=== PATIENT | female | born 1950 | race African-American/Black ===

== ENCOUNTER → 2017-02-10 | Outpatient (CLI) | payer MEDICARE | END | disposition home or self-care (01) | LOC: SURG 14:47 | PROVIDERS: ATTEND Anesthesiology | DX: M47.817 Spondylosis without myelopathy or radiculopathy, lumbosacral region (principal); M19.90 Unspecified osteoarthritis, unspecified site; E11.8 Type 2 diabetes mellitus with unspecified complications; J45.909 Unspecified asthma, uncomplicated | CPT/HCPCS: 99214 ==

== ENCOUNTER → 2017-03-03 | Outpatient (CLI) | payer MEDICARE ==
[~2017-03-03] MED LIST: BUPIVACAINE MPF 0.25% 10 ML VIAL. ONE; DEXAMETHASONE SOD PHOS 4 MG/ML VIAL ONE; IV NORMAL SALINE 250ML 250 ML ONE; LIDOCAINE (700MG/PATCH) PATCH. ONE; LIDOCAINE 1% PF 30 ML VIAL. ONE; MIDAZOLAM HCL PF 2 MG/2 ML VIAL. ONE
== END | disposition home or self-care (01) ==
LOC: SURG 11:57
PROVIDERS: ATTEND Anesthesiology
DX: M47.816 Spondylosis without myelopathy or radiculopathy, lumbar region (principal); J45.909 Unspecified asthma, uncomplicated; M19.91 Primary osteoarthritis, unspecified site; E11.9 Type 2 diabetes mellitus without complications
CPT/HCPCS: 64635; 64636; J1100; J2001; J2250; J3010; J3490; J7050

== ENCOUNTER → 2017-03-05 | Outpatient (CLI) | payer MEDICARE ==
--- NOTE | 2017-03-05 09:27 | RAD ---
Abdominal ultrasound, 03/05/2017: History: Right upper quadrant pain The gallbladder is within normal limits in size. It contains mobile echogenic foci compatible with gallstones. The gallbladder wall is not thickened. No bile duct dilatation is seen. There is no evidence of a hepatic mass. The pancreatic body is unremarkable. Other portions of the pancreas were obscured by overlying bowel. The spleen is of normal size. No renal abnormality is detected. The visualized portions of the abdominal aorta and inferior vena cava show no abnormality. No free fluid is evident in the abdomen. IMPRESSION: Cholelithiasis
== END | disposition home or self-care (01) ==
LOC: US 07:41
PROVIDERS: ATTEND Family Medicine
DX: K80.00 Calculus of gallbladder with acute cholecystitis without obstruction (principal)
CPT/HCPCS: 76700

== ENCOUNTER → 2017-03-17 | Outpatient (CLI) | payer MEDICARE ==
[~2017-03-17] MED LIST changes: +ATROPINE 1 MG/10 ML DISP.SYRIN ONE; +BUPIVACAINE MPF 0.25% 30 ML VIAL. ONE; +EPINEPHrine SYRINGE 1 MG/10 ML SYRINGE ONE; +FLUMAZENIL 0.5 MG/5 ML VIAL. IV ONE; +GLUCAGON,HUMAN RECOMBINANT 1 MG KIT. ONE; -LIDOCAINE (700MG/PATCH) PATCH. ONE; +NALOXONE 0.4 MG/ML VIAL. ONE; +diphenhydrAMINE 50 MG/ML VIAL ONE
== END | disposition home or self-care (01) ==
LOC: SURG 11:17
PROVIDERS: ATTEND Anesthesiology
DX: M47.816 Spondylosis without myelopathy or radiculopathy, lumbar region (principal); Z88.6 Allergy status to analgesic agent; Z88.2 Allergy status to sulfonamides
CPT/HCPCS: 64635; 64636; J1100; J2001; J2250; J3010; J3490; J7050; J0171; J0461; J1200; J1610; J2310

== ENCOUNTER → 2017-03-27 | Outpatient (CLI) | payer MEDICARE ==
--- NOTE | 2017-03-27 16:32 | RAD ---
CT of the head and facial bones without contrast 03/27/2017 2:00 AM Indication: Patient fell 2 months ago. Persistent left-sided facial swelling. Occasional dizziness. Comparison: None Procedure: Multidetector CT imaging of the head and facial bones was performed without the administration of contrast. Findings: No evidence of acute intracranial hemorrhage is identified. No mass effect or midline shift is seen. The ventricles and basilar cisterns have an unremarkable configuration. Mild atrophic changes are noted. No abnormal extra-axial fluid collections are identified. No evidence of acute territorial infarct is identified. The bony calvarium remains intact. Postsurgical changes to the globes are noted likely reflecting prior cataract surgery. The globes and orbits are otherwise grossly unremarkable. Mild edema or possibly resolving hematoma can be seen in the subcutaneous tissues of the left cheek. Correlate with over lying bruising. The paranasal sinuses are clear. The pterygoid plates are intact. Zygomatic arches are intact. Mandible is incompletely visualized. Visualized portions of the mandible are intact. Nasal bones are intact. The bony orbits are intact. Impression: 1. No evidence of acute intracranial abnormality 2. No evidence of acute facial bone abnormality. Minimal subcutaneous density within left cheek possibly minimal residual edema resolving hematoma. PQRS Compliance Statement: One or more of the following individualized dose reduction techniques were utilized for this examination: 1. Automated exposure control 2. Adjustment of the mA and/or kV according to patient size 3. Use of iterative reconstruction technique
== END | disposition home or self-care (01) ==
LOC: RAD 16:00
PROVIDERS: ATTEND Family Medicine
DX: S02.32XA Fracture of orbital floor, left side, initial encounter for closed fracture (principal); R42 Dizziness and giddiness; X58.XXXA Exposure to other specified factors, initial encounter; Y93.89 Activity, other specified; Y92.89 Other specified places as the place of occurrence of the external cause; Y99.8 Other external cause status
CPT/HCPCS: 70450; 70486

== ENCOUNTER → 2017-04-14 | Outpatient (CLI) | payer MEDICARE ==
[~2017-04-14] MED LIST changes: -ATROPINE 1 MG/10 ML DISP.SYRIN ONE; -BUPIVACAINE MPF 0.25% 30 ML VIAL. ONE; -DEXAMETHASONE SOD PHOS 4 MG/ML VIAL ONE; -EPINEPHrine SYRINGE 1 MG/10 ML SYRINGE ONE; -FLUMAZENIL 0.5 MG/5 ML VIAL. IV ONE; -GLUCAGON,HUMAN RECOMBINANT 1 MG KIT. ONE; +IOHEXOL 300 MG/ML 50 ML VIAL. ONE; -IV NORMAL SALINE 250ML 250 ML ONE; -MIDAZOLAM HCL PF 2 MG/2 ML VIAL. ONE; -NALOXONE 0.4 MG/ML VIAL. ONE; -diphenhydrAMINE 50 MG/ML VIAL ONE; +methylPREDNISolone ACETATE 40 MG/ML VIAL. ONE
== END | disposition home or self-care (01) ==
LOC: SURG 13:05
PROVIDERS: ATTEND Anesthesiology
DX: M16.11 Unilateral primary osteoarthritis, right hip (principal); M47.816 Spondylosis without myelopathy or radiculopathy, lumbar region; E11.9 Type 2 diabetes mellitus without complications; J45.909 Unspecified asthma, uncomplicated; Z88.6 Allergy status to analgesic agent; Z88.2 Allergy status to sulfonamides; Z90.710 Acquired absence of both cervix and uterus; Z98.890 Other specified postprocedural states
CPT/HCPCS: 20610; 77002; J1030; J2001; J3490; Q9967

== ENCOUNTER → 2017-07-15 | Outpatient (CLI) | payer OTHER ==
[~2017-07-15] MED LIST changes: +ALBU8.5H8 INH; +AZIT250T PO; -BUPIVACAINE MPF 0.25% 10 ML VIAL. ONE; -IOHEXOL 300 MG/ML 50 ML VIAL. ONE; +IOHEXOL 300 MG/ML 75 ML VIAL. IV ONE; -LIDOCAINE 1% PF 30 ML VIAL. ONE; -methylPREDNISolone ACETATE 40 MG/ML VIAL. ONE
[2017-07-15 08:16] LABS: CREATININE 0.8 mg/dL (0.6-1.0); GFR 87.4
--- NOTE | 2017-07-15 10:55 | RAD ---
CT pulmonary angiogram with intravenous contrast History: Elevated d-dimer, chest pain, shortness air, cough Comparison: None. Technique: CT angiogram of the chest with attention to the pulmonary arteries was performed after the administration of intravenous contrast, 75 mL Omnipaque-300. Axial 2-D reconstructions were obtained. Coronal 3-D MIPS were obtained of the chest. Exposure: One or more of the following individualized dose reduction techniques were utilized for this examination: 1. Automated exposure control 2. Adjustment of the mA and/or kV according to patient size 3. Use of iterative reconstruction technique Findings: Pulmonary arteries are adequately opacified. There is no evidence of pulmonary embolism. Trachea and mainstem bronchi appear patent. Visualized thyroid this is without evidence of focal nodule. No acute airspace disease is identified. No pneumothorax or pleural effusion is seen. No mediastinal lymphadenopathy is seen. Thoracic aorta has normal caliber. Heart and pericardium are unremarkable. Small calcified left lower lobe granuloma is seen. Post surgical changes are seen involving the stomach, compatible with bariatric surgery. There is mild thickening of left adrenal gland. Mild degeneration is seen in the spine. Impression: 1. No evidence of pulmonary embolism. No acute abnormality identified in the chest. Electronically signed by: Anirudh Prescott MD (07/15/2017 10:52 AM) [place] [id number]
== END | disposition home or self-care (01) ==
LOC: CT 07:38
PROVIDERS: ATTEND Family Medicine
DX: R79.9 Abnormal finding of blood chemistry, unspecified (principal); R79.89 Other specified abnormal findings of blood chemistry; J84.10 Pulmonary fibrosis, unspecified; E11.9 Type 2 diabetes mellitus without complications
CPT/HCPCS: 36415; 71275; 82565; 84520

== ENCOUNTER 2017-07-16 06:19 | Emergency (ER) | payer OTHER ==
[~2017-07-16] VITALS: Ht 172.7 cm; Wt 136.1 kg
--- NOTE | 2017-07-16 06:56 | PHYS DOC ---
General Chief Complaint: swelling Stated Complaint: dyspnea Time Seen by MD: 06:21 Source: patient Exam Limitations: no limitations Problems: History of Present Illness Initial Comments 65-year-old female comes to the ED complaining of leg swelling and chest tightness with dyspnea. Patient states that she was seen for similar symptoms yesterday by her PCP Dr. Elizalde. He ordered a CTA of the chest to rule out PE given her hypercoagulable history, that study was negative I have attached result the chart below. Patient states that she continues to have worsening chest tightness and perceived shortness of breath and has noticed increasing lower extremity swelling bilaterally and she's having pain at the dorsal aspect of her right thigh and calf. She's had a nonproductive cough with chills and sweats no measured fevers but no actual body aches. ED vitals: 97.8, 78, 22, 136/71, 97% room air PCP Alexis PATIENT: JC GARDNER ACCOUNT: [id number] : 1950 LOCATION: CT AGE: 66 SEX: F EXAM STATUS: REG CLI ORD. PHYSICIAN: BHANU ELIZALDE MD REASON: ELEVATED D DIMER PROCEDURE: CT ANGIOGRAPHY CHEST CT pulmonary angiogram with intravenous contrast History: Elevated d-dimer, chest pain, shortness air, cough Comparison: None. Technique: CT angiogram of the chest with attention to the pulmonary arteries was performed after the administration of intravenous contrast, 75 mL Omnipaque-300. Axial 2-D reconstructions were obtained. Coronal 3-D MIPS were obtained of the chest. Exposure: One or more of the following individualized dose reduction techniques were utilized for this examination: 1. Automated exposure control 2. Adjustment of the mA and/or kV according to patient size 3. Use of iterative reconstruction technique Findings: Pulmonary arteries are adequately opacified. There is no evidence of pulmonary embolism. Trachea and mainstem bronchi appear patent. Visualized thyroid this is without evidence of focal nodule. No acute airspace disease is identified. No pneumothorax or pleural effusion is seen. No mediastinal lymphadenopathy is seen. Thoracic aorta has normal caliber. Heart and pericardium are unremarkable. Small calcified left lower lobe granuloma is seen. Post surgical changes are seen involving the stomach, compatible with bariatric surgery. There is mild thickening of left adrenal gland. Mild degeneration is seen in the spine. Impression: 1. No evidence of pulmonary embolism. No acute abnormality identified in the chest. Electronically signed by: Anirudh Sánchez MD (07/15/2017 10:52 AM) [place] [id number] DICTATED AND SIGNED BY: ANIRUDH SÁNCHEZ MD DATE: 07/15/17 1044 CC: BHANU ELIZALDE MD ~ Timing/Duration: other Severity: moderate Modifying Factors: worse with movement, improves with rest Associated Symptoms: chest pain, cough, diaphoresis, loss of appetite, malaise , shortness of breath, weakness Allergies: Coded Allergies: morphine (Verified Allergy, Mild, rash, 05/09/15) Sulfa (Sulfonamide Antibiotics) (Verified Allergy, Unknown, 07/15/17) Past Medical History Medical History: other (anxiety, depression, obstructive sleep apnea, diabetes , DVT) Surgical History: other (cholecystectomy, hysterectomy, tonsillectomy, tubal ligation, left knee, bilateral carpal tunnel, bilateral trigger finger) Social History Smoker: non-smoker Alcohol: none Drugs: none Review of Systems Constitutional: denies chills, denies fever Respiratory: see HPI Cardiovascular: see HPI Gastrointestinal: denies abdominal pain, denies nausea, denies vomiting Genitourinary: denies dysuria, denies frequency, denies hematuria Musculoskeletal: see HPI Hematologic/Lymphatic: see HPI Physical Exam General Appearance: WD/WN, no apparent distress Ear, Nose, Throat: hearing grossly normal, normal ENT inspection, normal pharynx Neck: non-tender, supple Respiratory: normal breath sounds, no respiratory distress Cardiovascular: normal peripheral pulses, regular rate, rhythm Gastrointestinal: non tender, soft Back: no CVA tenderness, no vertebral tenderness Extremities: normal range of motion, pelvis stable, calf tenderness Neurologic/Psychiatric: post commander II-XII nml as tested, no motor/sensory deficits, alert, normal mood/affect, oriented x 3 Skin: normal color, warm/dry Orders, Labs, Meds EKG: Normal sinus rhythm 62 bpm, normal axis no ST segment elevation interpreted by me. PATIENT: JC GARDNER ACCOUNT: [id number] : 1950 LOCATION: ER AGE: 66 SEX: F EXAM STATUS: REG ER ORD. PHYSICIAN: SANDRA LOWRY DO REASON: pain/swelling, h/o DVT PROCEDURE: VENOUS LOWER EXT BILATERAL Bilateral lower extremity venous ultrasound, 07/16/2017: History: Leg pain and swelling, more so on the right Duplex evaluation of the deep veins in the lower extremities was performed including grayscale, color-flow and spectral Doppler analysis. The femoral and popliteal veins demonstrate normal compressibility and normal responses to distal augmentation maneuvers. Color imaging of those vessels shows no evidence of intraluminal clot. The visualized deep veins in both calves are patent. IMPRESSION: There is no sonographic evidence of deep vein thrombosis in either lower extremity. DICTATED AND SIGNED BY: GEMMA STANTON MD DATE: 07/16/17826 CC: BHANU ELIZALDE MD; SANDRA LOWRY DO ~ 11:15: Patient rechecked she's feeling much better after nebulizer treatment and her lungs have cleared substantially. I discussed elevated CK and no discernible cause noted there are discussion. BUN/creatinine ratio is elevated at 25 will give 1 L normal saline IV bolus and discharge home to aggressively hydrate and use newly prescribed albuterol inhaler. She agrees to follow-up with Dr. Elizalde tomorrow to recheck her creatine kinase to make sure it is trending down. Departure Time of Disposition: 11:17 Disposition: 01 HOME, SELF-CARE Diagnosis: CK elevation, hypovolemia, Condition: GOOD Patient Instructions: Acute Bronchitis, [id number], Bronchospasm, Adult, Creatine Kinase (CK) Additional Instructions: Please review the patient education materials given by ED staff. Aggressive hydration with a sports drink and water. [id number] Tylenol and ibuprofen as needed. Prescription: Albuterol I, Z-Juve Follow-up tomorrow with Dr. Elizalde to recheck creatine kinase. Return to ED with new or changing symptoms. SANDRA LOWRY DO Jul 16, 2017 06:56
--- NOTE | 2017-07-16 07:06 | EKG ---
[address] [address] Test Date: 2017-07-16 Test Time: 06:46:54 Pat Name: JC GARDNER Department: Room: Gender: F Shoder Filler: KAROLINA : 1950 Requested By: SANDRA LOWRY Order Number: [id number] Reading MD: Measurements Intervals [place] Rate: 67 P: 31 [place]: 198 QRS: 5 QRSD: 78 T: 59 QT: 398 QTc: 423 Interpretive Statements SINUS RHYTHM NORMAL ECG RI6.01 No previous ECG available for comparison
[2017-07-16] MEDS ORDERED: NITROGLYCERIN SUBLINGUAL 0.4 MG BOTTLE OF 25. SL PRN (07:45)
[2017-07-16] MEDS ORDERED: IPRATRPIUM/ALBUTEROL 0.5/2.5MG 3 ML NEBU. NEB ONE (08:00)
[2017-07-16 08:09] LABS: INFLUENZA A PATIENT NEGATIVE (NEGATIVE); INFLUENZA B PATIENT NEGATIVE (NEGATIVE)
--- NOTE | 2017-07-16 08:30 | RAD ---
Bilateral lower extremity venous ultrasound, 07/16/2017: History: Leg pain and swelling, more so on the right Duplex evaluation of the deep veins in the lower extremities was performed including grayscale, color-flow and spectral Doppler analysis. The femoral and popliteal veins demonstrate normal compressibility and normal responses to distal augmentation maneuvers. Color imaging of those vessels shows no evidence of intraluminal clot. The visualized deep veins in both calves are patent. IMPRESSION: There is no sonographic evidence of deep vein thrombosis in either lower extremity.
[2017-07-16 08:50] LABS: BASO # 0.1 x10^3/uL (0.0-0.2); BASO % 1 % (0-3); EOS # 0.2 x10^3/uL (0.0-0.7); EOS % 4 % (0-3); HEMATOCRIT 36.9 % (36.0-47.0); HEMOGLOBIN 12.3 g/dL (12.0-15.5); LYMPH # 2.5 x10^3/uL (1.0-4.8); LYMPH % 46 % (24-48); MEAN CORPUSCULAR HEMOGLOBIN 29 pg (25-35); MEAN CORPUSCULAR HGB CONC 33 g/dL (31-37); MEAN CORPUSCULAR VOLUME 87 fL (79-100); MONO # 0.3 x10^3/uL (0.0-1.1); MONO % 6 % (0-9); NEUT # 2.3 x10^3uL (1.8-7.7); NEUT % 42 % (31-73); PLATELET COUNT 284 x10^3/uL (140-400); RED BLOOD COUNT 4.23 x10^6/uL (3.50-5.40); RED CELL DISTRIBUTION WIDTH 13.4 % (11.5-14.5); WHITE BLOOD COUNT 5.4 x10^3/uL (4.0-11.0)
[2017-07-16 09:18] LABS: BACTERIA,URINE 0 /HPF (0-FEW); BILIRUBIN,URINE NEG (NEG); CLARITY,URINE CLEAR; COLOR,URINE YELLOW; GLUCOSE,URINE NEG (NEG); NITRITE,URINE NEG (NEG); RBC,URINE 0 /HPF (0-2); SQUAMOUS EPITHELIAL CELL,UR FEW /LPF; UROBILINOGEN,URINE 0.2 mg/dL (0.2 mg/dL); WBC,URINE 0 /HPF (0-4)
[2017-07-16 09:58] LABS: ALBUMIN 3.6 g/dL (3.4-5.0); ALBUMIN/GLOBULIN RATIO 1.1 (1.0-1.7); CALCIUM 9.2 mg/dL (8.5-10.1); CREATININE 0.6 mg/dL (0.6-1.0); GFR 121.8; POTASSIUM 4.1 mmol/L (3.5-5.1); TOTAL BILIRUBIN 0.4 mg/dL (0.2-1.0); TOTAL PROTEIN 6.9 g/dL (6.4-8.2)
[2017-07-16] MEDS ORDERED: methylPREDNISolone SOD SUCC PF 125 MG/2 ML VIAL. IV ONE (10:15)
[2017-07-16] MEDS ORDERED: IV NORMAL SALINE 1,000ML 1,000 ML IV SCH (11:13)
[2017-07-16] MEDS ORDERED: ALBU8.5H8 INH (11:15)
[2017-07-16] MEDS ORDERED: AZIT250T PO (11:19)
[2017-07-16 12:09] VITALS: BP 123/64
== END 2017-07-16 12:29 | disposition home or self-care (01) ==
LOC: ER 06:19
DX: R74.8 Abnormal levels of other serum enzymes (principal); E86.1 Hypovolemia; E11.9 Type 2 diabetes mellitus without complications; F41.9 Anxiety disorder, unspecified; F32.9 Major depressive disorder, single episode, unspecified; G47.33 Obstructive sleep apnea (adult) (pediatric); Z86.718 Personal history of other venous thrombosis and embolism; Z88.5 Allergy status to narcotic agent; Z88.2 Allergy status to sulfonamides
CPT/HCPCS: 36415; 80053; 81001; 82550; 83690; 83880; 84484; 85025; 87804; 93005; 93970; 94640; 96361; 96374; 99285; J2930; J7620; J7030

== ENCOUNTER 2017-08-01 09:08 | Emergency (ER) | payer OTHER ==
[~2017-08-01 09:08] MED LIST changes: -IOHEXOL 300 MG/ML 75 ML VIAL. IV ONE
[2017-08-01 09:15] VITALS: BP 125/82
[2017-08-01] MEDS ORDERED: PRED20TA PO (09:32)
--- NOTE | 2017-08-01 09:32 | PHYS DOC ---
Past History Past Medical History: Anxiety, Depression, Diabetes Past Surgical History: Cholecystectomy, Hysterectomy, Tonsillectomy, Tubal ligation Alcohol Use: None Drug Use: None Adult General Chief Complaint Chief Complaint: SKIN RASH HPI HPI Patient is a 66-year-old female who presents ambulatory to the ED with the complaint of itchy skin rash which she believes is poison destiny. She was working in the yard about 4 days ago and since then has progressively developed a very itchy rash on her right forearm, the right side of her neck, and some spots on her face. She has had poison destiny before and thinks that's what it is. She has tried wxcj-[id number]-[id number] hydrocortisone without relief. Patient is diabetic. She is currently managed with Lantus, no oral agents, no short acting insulin. Her blood sugars have been doing very well. She varies her Lantus dose depending on how her blood sugars are doing and takes it once a day. Her most recent prescription was for 13 units but she takes only 2, 4, or 6 units most days because her blood sugar is doing very well and she doesn't want it to drop too low. She does not take short acting insulin. Review of Systems Review of Systems Constitutional: Denies fever or chills [] Integument: As in history of present illness, rash Endocrine: As in history of present illness relative to blood sugars and insulin usage Allergies Allergies Allergies Coded Allergies Type Severity Reaction Last Updated Verified morphine Allergy Mild rash 05/09/15 Yes Sulfa (Sulfonamide Antibiotics) Allergy Unknown 07/15/17 Yes Physical Exam Physical Exam Constitutional: Well developed, well nourished, no acute distress, non-toxic appearance. Alert, mentating normally, warm and dry. HENT: Normocephalic, atraumatic, nose normal. Pt indicates rash at the left hairline, small red lesions are noted. Eyes: conjunctiva normal, no discharge. [] Neck: Normal range of motion, no stridor. A red patch of rash consistent with contact dermatitis is present over the right anterolateral neck which has been excoriated. Skin: Warm, dry, no erythema, rash as noted Extremities: No tenderness, no cyanosis, no clubbing, ROM intact, no edema. Right arm has a papulovesicular rash on the distal forearm, mostly on the palmar aspect, which is consistent with contact dermatitis. Neurologic: Alert and oriented X 3, normal motor function, no focal deficits noted. [] EKG EKG [] Radiology/Procedures Radiology/Procedures [] Course & Med Decision Making Course & Med Decision Making Pertinent Labs and Imaging studies reviewed. (See chart for details) 66-year-old female presents to the ED with poison destiny. The itching is driving her crazy. She has taken prednisone before for poison destiny and she knows it makes her blood sugar go up. She is willing to do that because she would like to take prednisone for this episode of poison destiny. We also discussed D contaminating any clothing or tools from the poison destiny oil. She understands the plan. See instructions for plan. [] Dragon Disclaimer Dragon Disclaimer This electronic medical record was generated, in whole or in part, using a voice recognition dictation system. Departure Departure: Impression: Primary Impression: Poison destiny dermatitis Disposition: HOME, SELF-CARE Condition: STABLE Referrals: BHANU ELIZALDE MD (PCP) Patient Instructions: Poison Destiny, [id number] Additional Instructions: As we discussed, clean anything that might have been exposed to the poison destiny oil, to avoid getting it on your skin again. The prednisone will cause your blood sugar to go higher temporarily but it should return to its normal range for you within 3-5 days after finishing the prednisone. Scripts Prednisone (PREDNISONE) 20 Mg Tablet 1 TAB PO BID x 5 d then q am for poison destiny for 10 Days, #15 TAB one po BID x 5 days then 1 po q am x 5 days for poison destiny Prov: GABE THAKKAR MD 08/01/17 GABE THAKKAR MD Aug 01, 2017 09:32
== END 2017-08-01 09:35 | disposition home or self-care (01) ==
LOC: ER 09:08
DX: L23.7 Allergic contact dermatitis due to plants, except food (principal); E11.9 Type 2 diabetes mellitus without complications; Z88.5 Allergy status to narcotic agent; Z88.2 Allergy status to sulfonamides
CPT/HCPCS: 99283

== ENCOUNTER 2018-06-06 11:15 | Emergency (ER) | payer OTHER ==
[~2018-06-06] VITALS: Ht 172.7 cm; Wt 136.1 kg
[~2018-06-06 11:15] MED LIST changes: +ALBU2.5V8 INH; -ALBU8.5H8 INH; +PRED20TA PO
[2018-06-06] MEDS ORDERED: LAMO1TAB2 PO (11:32)
[2018-06-06 11:33] VITALS: BP 147/86
--- NOTE | 2018-06-06 12:08 | RAD ---
PQRS Compliance Statement: One or more of the following individualized dose reduction techniques were utilized for this examination: 1. Automated exposure control 2. Adjustment of the mA and/or kV according to patient size 3. Use of iterative reconstruction technique CT head and cervical spine without contrast 06/06/2018 11:44 AM INDICATION: Fall 2 days ago with headache and dizziness. COMPARISON: CT head March 27, 2017 TECHNIQUE: Multiple axial CT images of the head were obtained from skull base through the vertex without intravenous contrast. Multiple axial CT images of the cervical spine were obtained without intravenous contrast. Coronal and sagittal reformats are provided. FINDINGS: Head: Ventricles, sulci and basal cisterns are within normal limits. There is no hydrocephalus. Pa-white matter differentiation is normal. There is no acute intracranial hemorrhage. There is no mass, mass effect or midline shift. Posterior fossa is normal in appearance. Visualized portions of the orbits are normal with exception of bilateral lens replacement. Paranasal sinuses are well aerated. Mastoid air cells are well aerated. Scalp and calvaria are normal. Cervical spine: Alignment of the cervical spine is normal. Skull base is intact. Craniocervical junction is normal in appearance. Atlantoaxial articulation is normal. Vertebral body heights are maintained without evidence for acute fracture. At C4-C5, there is a posterior disc osteophyte complex with mild facet arthropathy resulting in mild spinal canal stenosis. At C5-C6, there is a posterior disc osteophyte complex with mild facet and uncovertebral joint disease resulting in mild to moderate right and mild left neuroforaminal stenosis as well as mild to moderate spinal canal stenosis. At C6-C7, there is a posterior disc osteophyte complex with mild facet arthropathy, right greater than left. There is mild to moderate uncovertebral joint disease resulting in mild to moderate bilateral neuroforaminal stenosis and mild to moderate spinal canal stenosis. There is no prevertebral soft tissue swelling. Thyroid gland is normal in appearance. Visualized portions of the lung apices are normal without evidence for suspicious pulmonary nodule or infiltrate. IMPRESSION: 1. No acute intracranial hemorrhage. 2. No acute fracture or malalignment of the cervical spine. Mild to moderate cervical spondylosis. Electronically signed by: Meka Kim MD (06/06/2018 12:04 PM) [facility]
[2018-06-06] MEDS ORDERED: TRAM-48 PO (12:46)
[2018-06-06] MEDS ORDERED: ONDA4TAB7 PO (12:46)
--- NOTE | 2018-06-06 12:46 | PHYS DOC ---
Past History Past Medical History: Anxiety, Dementia, Depression, Diabetes, GERD Past Surgical History: Cholecystectomy, Hysterectomy, Tonsillectomy, Tubal ligation, Other Smoking: Non-smoker Alcohol Use: None Drug Use: None Adult General Chief Complaint Chief Complaint: MECHANICAL FALL HPI HPI Patient is a 67 year old female who presents with complaining of headache after a fall. Patient states she had an accidental fall in her basement 3 days ago without loss of consciousness. Patient states she was sleeping all day yesterday and had headache in left side of her head. Patient complaining of nausea and increasing headache today with generalized weakness. Patient denies focal neuro deficit, fever, vomiting, blurred vision, chest pain and shortness of breath. Patient rated her headache 8/10 and does not want to have pain medication in ER. Review of Systems Review of Systems Constitutional: Denies fever or chills [] Eyes: Denies change in visual acuity, redness, or eye pain [] HENT: Denies nasal congestion or sore throat [] Respiratory: Denies cough or shortness of breath [] Cardiovascular: No additional information not addressed in HPI [] GI: Denies abdominal pain, vomiting, bloody stools or diarrhea , reports nausea [] : Denies dysuria or hematuria [] Musculoskeletal: Denies back pain or joint pain [] Integument: Denies rash or skin lesions [] Neurologic: Reports headache, denies focal weakness or sensory changes [] Endocrine: Denies polyuria or polydipsia [] All other systems were reviewed and found to be within normal limits, except as documented in this note. Allergies Allergies Allergies Coded Allergies Type Severity Reaction Last Updated Verified morphine Allergy Mild rash 05/09/15 Yes Sulfa (Sulfonamide Antibiotics) Allergy Unknown 07/15/17 Yes Physical Exam Physical Exam Constitutional: Well developed, well nourished, mild distress, non-toxic appearance. [] HENT: Normocephalic, atraumatic, bilateral external ears normal, oropharynx moist, no oral exudates, nose normal. [] Eyes: PERRLA, EOMI, conjunctiva normal, no discharge. [] Neck: Normal range of motion, no tenderness, supple, no stridor. [] Cardiovascular:Heart rate regular rhythm, no murmur [] Lungs & Thorax: Bilateral breath sounds clear to auscultation [] Abdomen: Bowel sounds normal, soft, no tenderness, no masses, no pulsatile masses. [] Skin: Warm, dry, no erythema, no rash. [] Back: No tenderness, no CVA tenderness. [] Extremities: No tenderness, no cyanosis, no clubbing, ROM intact, no edema. [] Neurologic: Alert and oriented X 3, normal motor function, normal sensory function, no focal deficits noted. [] Psychologic: Affect normal, judgement normal, mood normal. [] Current Patient Data Vital Signs Vital Signs Date Time Temp Pulse Resp B/P (MAP) Pulse Ox O2 Delivery O2 Flow Rate FiO2 06/06/18 11:33 98.2 83 16 97 Room Air EKG EKG [] Radiology/Procedures Radiology/Procedures [address] [address] IMAGING REPORT Signed PATIENT: JC GARDNER ACCOUNT: [id number] : 1950 LOCATION: ER AGE: 67 SEX: F EXAM STATUS: REG ER ORD. PHYSICIAN: ANTONELLA OWEN MD REASON: fall PROCEDURE: CT HEAD AND CERVICAL SPINE WO RS Compliance Statement: One or more of the following individualized dose reduction techniques were utilized for this examination: 1. Automated exposure control 2. Adjustment of the mA and/or kV according to patient size 3. Use of iterative reconstruction technique CT head and cervical spine without contrast 06/06/2018 11:44 AM INDICATION: Fall 2 days ago with headache and dizziness. COMPARISON: CT head March 27, 2017 TECHNIQUE: Multiple axial CT images of the head were obtained from skull base through the vertex without intravenous contrast. Multiple axial CT images of the cervical spine were obtained without intravenous contrast. Coronal and sagittal reformats are provided. FINDINGS: Head: Ventricles, sulci and basal cisterns are within normal limits. There is no hydrocephalus. Pa-white matter differentiation is normal. There is no acute intracranial hemorrhage. There is no mass, mass effect or midline shift. Posterior fossa is normal in appearance. Visualized portions of the orbits are normal with exception of bilateral lens replacement. Paranasal sinuses are well aerated. Mastoid air cells are well aerated. Scalp and calvaria are normal. Cervical spine: Alignment of the cervical spine is normal. Skull base is intact. Craniocervical junction is normal in appearance. Atlantoaxial articulation is normal. Vertebral body heights are maintained without evidence for acute fracture. At C4-C5, there is a posterior disc osteophyte complex with mild facet arthropathy resulting in mild spinal canal stenosis. At C5-C6, there is a posterior disc osteophyte complex with mild facet and uncovertebral joint disease resulting in mild to moderate right and mild left neuroforaminal stenosis as well as mild to moderate spinal canal stenosis. At C6-C7, there is a posterior disc osteophyte complex with mild facet arthropathy, right greater than left. There is mild to moderate uncovertebral joint disease resulting in mild to moderate bilateral neuroforaminal stenosis and mild to moderate spinal canal stenosis. There is no prevertebral soft tissue swelling. Thyroid gland is normal in appearance. Visualized portions of the lung apices are normal without evidence for suspicious pulmonary nodule or infiltrate. IMPRESSION: 1. No acute intracranial hemorrhage. 2. No acute fracture or malalignment of the cervical spine. Mild to moderate cervical spondylosis. Electronically signed by: Ganga Christensen MD (06/06/2018 12:04 PM) [facility] DICTATED AND SIGNED BY: GANGA CHRISTENSEN MD DATE: 06/06/18 1200 CC: BHANU ELIZALDE MD; ANTONELLA OWEN MD ~ Course & Med Decision Making Course & Med Decision Making Pertinent Imaging studies reviewed. (See chart for details) Evaluation of patient in ER showed 67-year-old male patient with accidental fall from a standing position 3 days ago and complaining of headache and nausea and mild confusion. Patient had unremarkable physical exam and CT of C-spine and hit. Plan discharge patient home with diagnose of concussion. Dragon Disclaimer Dragon Disclaimer This electronic medical record was generated, in whole or in part, using a voice recognition dictation system. Departure Departure: Disposition: 01 HOME, SELF-CARE (at 1243) Condition: IMPROVED Referrals: BHANU ELIZALDE MD (PCP) Patient Instructions: Concussion and Brain Injury, Nausea, Adult Additional Instructions: Drink plenty of liquids Follow-up with your primary care physician in 3-5 days Return to ER if not getting better Scripts Ondansetron Hcl (ZOFRAN) 4 Mg Tablet 1 TAB PO Q6HRS for nausea and vomiting, #12 TAB Prov: ANTONELLA OWEN MD 06/06/18 Tramadol Hcl (ULTRAM) 50 Mg Tablet 50 MG PO PRN Q6HRS PRN for PAIN, #20 TAB Prov: ANTONELLA OWEN MD 06/06/18 ANTONELLA OWEN MD Jun 06, 2018 12:46
== END 2018-06-06 12:52 | disposition home or self-care (01) ==
LOC: ER 11:15
DX: R51 Headache (principal); G89.11 Acute pain due to trauma; R53.1 Weakness; R11.0 Nausea; R42 Dizziness and giddiness; F41.9 Anxiety disorder, unspecified; F03.90 Unspecified dementia, unspecified severity, without behavioral disturbance, psychotic disturbance, mood disturbance, and anxiety; F32.9 Major depressive disorder, single episode, unspecified; E11.9 Type 2 diabetes mellitus without complications; K21.9 Gastro-esophageal reflux disease without esophagitis; Z88.5 Allergy status to narcotic agent; W18.30XA Fall on same level, unspecified, initial encounter; Y93.89 Activity, other specified; Y92.89 Other specified places as the place of occurrence of the external cause; Y99.8 Other external cause status
CPT/HCPCS: 70450; 72125; 99284-25

== ENCOUNTER 2018-06-11 13:13 | Observation (INO) | payer OTHER ==
[~2018-06-11] VITALS: Ht 162.6 cm; Wt 95.1 kg
[~2018-06-11 13:13] MED LIST changes: +LAMO1TAB2 PO; +ONDA4TAB7 PO; +TRAM-48 PO
[2018-06-11 13:32] VITALS: BP 124/73
[2018-06-11] MEDS ORDERED: DULO30CA2 PO (14:52)
[2018-06-11] MEDS ORDERED: INSU100I13 SQ (14:52)
[2018-06-11] MEDS ORDERED: GABA-586 PO (14:52)
[2018-06-11] MEDS ORDERED: ROPI1TAB PO (14:52)
[2018-06-11] MEDS ORDERED: VITA0.4T17 PO (14:52)
[2018-06-11] MEDS ORDERED: BUSP15TA PO (14:52)
[2018-06-11] MEDS ORDERED: CRESTOR10 MG PO (14:52)
[2018-06-11] MEDS ORDERED: TRAM50TA PO (14:52)
[2018-06-11] MEDS ORDERED: ASPI-630 PO (14:52)
[2018-06-11] MEDS ORDERED: FLUT1BLS IH (14:52)
[2018-06-11] MEDS ORDERED: ESOM40CA PO (14:52)
[2018-06-11 15:06] VITALS: BP 110/64
[2018-06-11 15:07] VITALS: BP 114/72
[2018-06-11 15:14] VITALS: BP 118/74
[2018-06-11] MEDS ORDERED: MECLIZINE 12.5 MG TABLET. PO PRN (15:30)
[2018-06-11] MEDS ORDERED: traMADol 50 MG TABLET PO PRN (16:00)
[2018-06-11] MEDS ORDERED: DEXTROSE 50% 25 GM / 50ML DISP.SYRIN. IV PRN (16:00)
[2018-06-11 16:19] LABS: ALBUMIN 3.2 g/dL (3.4-5.0); ALBUMIN/GLOBULIN RATIO 0.9 (1.0-1.7); C REACTIVE PROTEIN 0.5 mg/L (0-3.3); CALCIUM 8.5 mg/dL (8.5-10.1); CREATININE 0.8 mg/dL (0.6-1.0); GFR 87.1; POTASSIUM 3.9 mmol/L (3.5-5.1); TOTAL BILIRUBIN 0.2 mg/dL (0.2-1.0); TOTAL PROTEIN 6.9 g/dL (6.4-8.2)
--- NOTE | 2018-06-11 16:52 | RAD ---
Examination: CT HEAD WO CONTRAST History: Head trauma, dizziness Comparison/Correlation: 06/06/2018 CT head and cervical spine without contrast Findings: Axial images of the head were obtained without contrast. Ventricles are normal size. Bifrontal subdural hygromas are small in size. Mild atrophy noted. No intracranial hemorrhage, midline shift, or mass effect. No depressed fracture. Impression: No acute process. Electronically signed by: Tano Beasley MD (06/11/2018 4:48 PM) [facility]
[2018-06-11] MEDS: INSULIN LISPRO 300 UNITS/3 ML INSULN.PEN. SQ SCH (16:55)
[2018-06-11 17:31] LABS: BILIRUBIN,URINE NEG (NEG); CLARITY,URINE CLEAR; COLOR,URINE YELLOW; GLUCOSE,URINE NEG (NEG); NITRITE,URINE NEG (NEG); RBC,URINE 0 /HPF (0-2); UROBILINOGEN,URINE 1 mg/dL (0.2 mg/dL)
[2018-06-11 17:32] LABS: BACTERIA,URINE FEW /HPF (0-FEW); SQUAMOUS EPITHELIAL CELL,UR OCC /LPF
[2018-06-11] MEDS ORDERED: ONDANSETRON PF 4 MG/2 ML VIAL. IV PRN (18:15)
[2018-06-11] MEDS: POLYETHYLENE GLYCOL 3350 17 GM PACKET. PO PRN (18:28)
[2018-06-11 18:29] LABS: FECAL OB PT NEGATIVE (NEG)
[2018-06-11] MEDS ORDERED: IV NORMAL SALINE 1,000ML 1,000 ML IV PRN (18:30)
[2018-06-11 19:08] LABS: BASO % 1 % (0-3); EOS # 0.1 x10^3/uL (0.0-0.7); EOS % 2 % (0-3); HEMATOCRIT 36.2 % (36.0-47.0); LYMPH # 1.8 x10^3/uL (1.0-4.8); LYMPH % 30 % (24-48); MEAN CORPUSCULAR HEMOGLOBIN 29 pg (25-35); MEAN CORPUSCULAR HGB CONC 33 g/dL (31-37); MEAN CORPUSCULAR VOLUME 88 fL (79-100); MONO # 0.5 x10^3/uL (0.0-1.1); MONO % 8 % (0-9); NEUT # 3.4 x10^3uL (1.8-7.7); NEUT % 59 % (31-73); PLATELET COUNT 288 x10^3/uL (140-400); WHITE BLOOD COUNT 5.8 x10^3/uL (4.0-11.0)
[2018-06-11 19:51] VITALS: BP 128/76
[2018-06-11] MEDS ORDERED: rOPINIRole 2 MG TABLET. PO SCH (21:00)
[2018-06-11] MEDS: busPIRone 15 MG TABLET. PO SCH (21:07)
[2018-06-11] MEDS: BUDESONIDE 0.5 MG/2 ML NEBU NEB SCH (21:10)
[2018-06-11] MEDS: ALBUTEROL SULFATE 2.5 MG/3 ML NEBU. NEB SCH (21:10)
[2018-06-12] MEDS: ALBUTEROL SULFATE 2.5 MG/3 ML NEBU. NEB SCH ×2 (05:19→09:35)
[2018-06-12 06:02] VITALS: BP 123/72
[2018-06-12] MEDS ORDERED: PANTOPRAZOLE 40 MG TABLET. PO SCH (07:30)
[2018-06-12] MEDS: INSULIN LISPRO 300 UNITS/3 ML INSULN.PEN. SQ SCH (08:00)
[2018-06-12] MEDS: busPIRone 15 MG TABLET. PO SCH (08:31)
[2018-06-12] MEDS: POLYETHYLENE GLYCOL 3350 17 GM PACKET. PO PRN (08:31)
[2018-06-12 08:41] VITALS: BP 137/76
[2018-06-12 08:42] VITALS: BP 145/79
[2018-06-12 08:43] VITALS: BP 152/80
[2018-06-12] MEDS ORDERED: NON FORMULARY ITEM (Fluticasone/Vilanterol (Breo Ellipta 200-25 Mcg INH) 1 PUFF) IH SCH (09:00)
[2018-06-12] MEDS ORDERED: DULoxetine HCL 30 MG CAPSULE.DR PO SCH (09:00)
[2018-06-12] MEDS ORDERED: IV NORMAL SALINE 1,000ML 1,000 ML IV SCH (09:00)
[2018-06-12] MEDS ORDERED: INSULIN GLARGINE 300 UNITS/3 ML INSULN.PEN. SQ SCH (09:00)
[2018-06-12] MEDS: BUDESONIDE 0.5 MG/2 ML NEBU NEB SCH (09:35)
[2018-06-12] MEDS ORDERED: POLY17PO5 PO (10:21)
[2018-06-12] MEDS ORDERED: CRESTOR10 MG PO (10:21)
[2018-06-12] MEDS ORDERED: DULO30CA2 PO (10:21)
[2018-06-12] MEDS ORDERED: INSU100I11 SQ (10:21)
[2018-06-12] MEDS ORDERED: MECL12.52 PO (10:21)
[2018-06-12] MEDS ORDERED: INSU100I13 SQ (10:21)
[2018-06-12] MEDS ORDERED: GABA-586 PO (10:21)
[2018-06-12] MEDS ORDERED: FLUT1BLS IH (10:21)
[2018-06-12] MEDS ORDERED: TRAM50TA PO (10:21)
[2018-06-12] MEDS ORDERED: BUSP15TA PO (10:21)
[2018-06-12] MEDS ORDERED: ROPI1TAB PO (10:21)
[2018-06-12] MEDS ORDERED: ESOM40CA PO (10:21)
[2018-06-12] MEDS ORDERED: BUDE0.5A11 NEB (10:21)
== END 2018-06-12 11:04 | disposition home or self-care (01) ==
LOC: INTOOBSV 13:13 → 1 SOUTH 13:13
PROVIDERS: ADMIT Family Medicine; ATTEND Family Medicine
DX: I95.1 Orthostatic hypotension (principal); R42 Dizziness and giddiness; S09.90XD Unspecified injury of head, subsequent encounter; E11.9 Type 2 diabetes mellitus without complications; Z87.19 Personal history of other diseases of the digestive system; Z79.899 Other long term (current) drug therapy; Z88.8 Allergy status to other drugs, medicaments and biological substances; Z88.2 Allergy status to sulfonamides; W19.XXXA Unspecified fall, initial encounter; Y92.89 Other specified places as the place of occurrence of the external cause; Y93.89 Activity, other specified
CPT/HCPCS: 36415; 70450; 80053; 81001; 82274; 82947; 84484; 85025; 86140; 94640; 96361; 96372; 96374; G0378; G0379; J1815; J2405; J7613; J7626; J7030

== ENCOUNTER 2020-08-18 05:47 | Emergency (ER) | payer MEDICARE, OTHER ==
[~2020-08-18] VITALS: Ht 160 cm; Wt 103.3 kg
[~2020-08-18 05:47] MED LIST changes: +ASPI-630 PO; +BUDE0.5A11 NEB; +BUSP15TA PO; +CRESTOR10 MG PO; +DULO30CA2 PO; +ESOM40CA PO; +FLUT1BLS IH; +GABA-586 PO; +INSU100I11 SQ; +INSU100I13 SQ; +MECL12.582 PO; +POLY17PO5 PO; +ROPI1TAB PO; +TRAM50TA PO; +VITA0.4T17 PO
[2020-08-18 05:57] VITALS: BP 123/96
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
[2020-08-18 06:48] LABS: CALCIUM 9.3 mg/dL (8.5-10.1); CREATININE 0.9 mg/dL (0.6-1.0); GFR 75.6; POTASSIUM 4.7 mmol/L (3.5-5.1)
[2020-08-18 06:51] LABS: BASO # 0.1 x10^3/uL (0.0-0.2); BASO % 1 % (0-3); EOS % 0 % (0-3); HEMATOCRIT 39.8 % (36.0-47.0); LYMPH # 5.3 x10^3/uL (1.0-4.8); LYMPH % 47 % (24-48); MEAN CORPUSCULAR HEMOGLOBIN 29 pg (25-35); MEAN CORPUSCULAR HGB CONC 33 g/dL (31-37); MEAN CORPUSCULAR VOLUME 88 fL (79-100); MONO # 0.6 x10^3/uL (0.0-1.1); MONO % 6 % (0-9); NEUT # 5.2 x10^3uL (1.8-7.7); NEUT % 47 % (31-73); PLATELET COUNT 305 x10^3/uL (140-400); RED BLOOD COUNT 4.52 x10^6/uL (3.50-5.40); RED CELL DISTRIBUTION WIDTH 13.4 % (11.5-14.5); WHITE BLOOD COUNT 11.2 x10^3/uL (4.0-11.0)
[2020-08-18 06:54] LABS: ALBUMIN 3.8 g/dL (3.4-5.0); ALBUMIN/GLOBULIN RATIO 0.9 (1.0-1.7); TOTAL BILIRUBIN 0.4 mg/dL (0.2-1.0)
[2020-08-18 07:12] LABS: % SEGS 47 % (35-66)
[2020-08-18 07:13] LABS: % ATYL 16 % (0-0); % LYMPHS 30 % (24-48); % MONOS 7 % (0-10); PLT ESTIMATE ADEQUATE (ADEQUATE)
--- NOTE | 2020-08-18 07:46 | RAD ---
ADDENDUM #1 Addendum: Impression #4: Increased bilateral renal lesions, may represent complicated cysts. Recommend ultrasou nd to exclude solid lesions. Electronically signed by: Tremaine Raman DO (08/18/2020 8:06 AM) [facility] LUMBAR SPINE WO History:Reason: left low back pain / Spl. Instructions: / History: Technique: Noncontrast CT was performed of the lumbar spine. Multiplanar reconstructions were perform ed. Exposure: One or more of the following individualized dose reduction techniques were utilized for thi s examination: 1. Automated exposure control 2. Adjustment of the mA and/or kV according to patient size 3. Use of iterative reconstruction technique. Comparison: November 07, 2015 Findings: Posterior stabilization and interbody fusion L4-L5. Grade 1 anterolisthesis L4 on L5, unchanged. Normal vertebral body height. Mild upper curvature of the lumbar spine. Possible is placed fracture o f the left L1 transverse process (series 6 image 33) and L2 transverse process (series 4 image 28). Right mid renal isoechoic lesion measures 1.3 x 0.8 cm, increased compared to prior. Left anterior re nal hyperdense lesion measures 1.0 x 0.9 cm, compared to prior. T12-L1: No canal or neuroforaminal narrowing. L1-L2: Minimal disc bulge. No canal or neuroforaminal narrowing. L2-L3: Vacuum disc phenomenon. Broad-based disc bulge. Minimal canal narrowing. Subarticular recess narrowing. Moderate facet arthropathy. Mild left neuroforaminal narrowing. L3-L4: Disc bulge. Moderate facet arthropathy. No canal narrowing. Subarticular recess narrowing. Mi nimal left neuroforaminal narrowing. L4-L5: Intervertebral fusion. Posterior decompression. No canal narrowing. Mild left neuroforaminal narrowing. L5-S1: No canal narrowing. Advanced facet arthropathy. Mild neuroforaminal narrowing. Impression: 1. Possible acute left L1 and L2 transverse process nondisplaced fracture. Recommend correlation wit h point tenderness. 2. Multilevel lumbar spondylosis most prominent L2-L3. 3. Posterior stabilization and interbody fusion L4-5. Electronically signed by: Tremaine Raman DO (08/18/2020 7:44 AM) [facility]
[2020-08-18] MEDS ORDERED: KETOROLAC 15 MG/ML VIAL. IVP ONE (08:15)
[2020-08-18 09:29] LABS: BILIRUBIN,URINE NEG (NEG); CLARITY,URINE CLEAR; COLOR,URINE YELLOW; GLUCOSE,URINE 250 mg/dL (NEG)
[2020-08-18 09:30] LABS: BACTERIA,URINE 0 /HPF (0-FEW); NITRITE,URINE NEG (NEG); RBC,URINE OCC /HPF (0-2); SQUAMOUS EPITHELIAL CELL,UR FEW /LPF; UROBILINOGEN,URINE 0.2 mg/dL (0.2 mg/dL); WBC,URINE OCC /HPF (0-4)
[2020-08-18] MEDS ORDERED: CYCL-331 PO (09:39)
== END 2020-08-18 09:46 | disposition home or self-care (01) ==
LOC: ER 05:47
DX: M54.5 Low back pain (principal); R35.0 Frequency of micturition; M25.552 Pain in left hip; F03.90 Unspecified dementia, unspecified severity, without behavioral disturbance, psychotic disturbance, mood disturbance, and anxiety; F32.9 Major depressive disorder, single episode, unspecified; K21.9 Gastro-esophageal reflux disease without esophagitis; E11.40 Type 2 diabetes mellitus with diabetic neuropathy, unspecified; Z90.89 Acquired absence of other organs; Z90.710 Acquired absence of both cervix and uterus; Z98.51 Tubal ligation status; Z88.5 Allergy status to narcotic agent; Z88.2 Allergy status to sulfonamides
CPT/HCPCS: 36415; 72131; 80053; 81001; 82947; 85007; 85025; 96374; 99284; J1885

== ENCOUNTER → 2020-08-27 | Outpatient (CLI) | payer MEDICARE ==
[2020-08-18 05:57] VITALS: BP 123/96
[~2020-08-27] MED LIST changes: +CYCL-331 PO
--- NOTE | 2020-08-27 11:52 | RAD ---
EXAM: Renal sonogram. HISTORY: Cyst on CT. TECHNIQUE: Sonographic imaging of the kidneys and bladder was performed. COMPARISON: CT dated 11/14/2020. FINDINGS: The kidneys are normal in size. There is a 1.7 cm simple cyst within the superior right kid nick. No solid renal lesion is seen. There is no hydronephrosis. The bladder is unremarkable. There is no post void bladder residual. IMPRESSION: 1. 1.7 cm simple appearing right renal cyst. 2. Note is made that a small hyperdense lesion within the inferior left kidney on the recent CT demon strates no sonographic correlate. This is likely obscured due to small size. Electronically signed by: Jeanna Herrera MD (08/27/2020 11:50 AM) [id number]
== END ==
LOC: US 09:58
PROVIDERS: ATTEND Family Medicine
DX: N28.1 Cyst of kidney, acquired (principal); N28.89 Other specified disorders of kidney and ureter
CPT/HCPCS: 76770

== ENCOUNTER → 2020-08-31 | Outpatient (CLI) | payer MEDICARE ==
[2020-08-18 05:57] VITALS: BP 123/96
--- NOTE | 2020-09-12 11:07 | RAD ---
DATE: August 31, 2020 EXAM: MAMMO [place] SCREENING BILATERAL HISTORY: Screening study. COMPARISON: 2018 This study was interpreted with the benefit of Computerized Aided Detection (CAD). FINDINGS: Breast Density: HETERO The breast parenchyma is heterogenously dense, which could reduce sensitivity of mammography. Breast parenchyma level C.. There are no dominant suspicious masses, suspicious microcalcifications or evidence of architectural distortion. IMPRESSION: No mammographic indicators for malignancy. BI-RADS CATEGORY: 1 NEGATIVE RECOMMENDED FOLLOW-UP: 12M 12 MONTH FOLLOW-UP PQRS compliance statement: Patient information was entered into a reminder system with a target due date September 01, 2021 for the next mammogram. Mammography is a sensitive method for finding small breast cancers, but it does not detect them all and is not a substitute for careful clinical examination. A negative mammogram does not negate a clinically suspicious finding and should not result in delay in biopsying a clinically suspicious abnormality. "Our facility is accredited by the [employer] Mammography Program." The patient's breast density may affect the ability of mammography to detect breast cancer. There are 4 categories of breast density, A, B, C and D. Breast density A means that most of the breast tissue is replaced with adipose tissue and therefore is not dense. Breast density B means that the breast tissue is mildly dense and scattered. Breast density C means that the breast tissue is heterogeneously dense. Breast density D means that the breast tissue is very dense. Breast densities especially C and D may decrease the sensitivity of mammography to detect breast cancer. Therefore, the patient may benefit from 3-D breast mammography (3D breast tomography) as a part of their screening mammogram. Insurance may or may not pay for this additional imaging. The patient's breast density based on today's mammogram is category C.
== END ==
LOC: MAMMO 09:29
PROVIDERS: ATTEND Family Medicine
DX: Z12.31 Encounter for screening mammogram for malignant neoplasm of breast (principal)
CPT/HCPCS: 77063; 77067